=== PATIENT | female | born 1980 ===

== ENCOUNTER 2019-12-21 02:51 | Inpatient (IN) | payer OTHER, MEDICAID ==
[~2019-12-21] VITALS: Ht 157.5 cm; Wt 95.5 kg
[2019-12-21] MEDS ORDERED: SODIUM CITRATE/CITRIC ACID 30 ML UDC PO PRN (03:30)
[2019-12-21] MEDS ORDERED: OXYTOCIN 30U/ 0.9% NaCL 500ML 500 ML IV ONE (03:30)
[2019-12-21] MEDS ORDERED: PENICILLIN GK 2,500,000 UNITS in DEXTROSE 5% 100 ML IVPB SCH (03:30)
[2019-12-21] MEDS ORDERED: LACTATED RINGERS 1,000 ML IV SCH (03:30)
[2019-12-21] MEDS ORDERED: TERBUTALINE 1 MG/ML, 1ML SQ PRN (03:30)
[2019-12-21] MEDS ORDERED: NEWBORN KIT ONE (03:30)
[2019-12-21] MEDS ORDERED: D5%-LACTATED RINGERS 1,000 ML IV SCH (03:30)
[2019-12-21] MEDS ORDERED: ONDANSETRON 2MG/ML, 2ML IVPush PRN (03:30)
[2019-12-21] MEDS ORDERED: FENTANYL PF 100 MCG/2ML IV PRN (03:30)
[2019-12-21] MEDS ORDERED: PENICILLIN GK 5,000,000 UNITS in DEXTROSE 5% 100 ML IVPB ONE (03:30)
[2019-12-21] MEDS ORDERED: TERBUTALINE 1 MG/ML, 1ML IVPush PRN (03:30)
[2019-12-21] MEDS ORDERED: LACTATED RINGERS 1,000 ML IVBOLUS ONE (03:30)
[2019-12-21] MEDS ORDERED: FENTANYL PF 100 MCG/2ML IVPush PRN (03:30)
[2019-12-21] MEDS ORDERED: METOCLOPRAMIDE 5 MG/ML, 2ML IVPush PRN (03:30)
[2019-12-21] MEDS ORDERED: OXYTOCIN 30U/ 0.9% NaCL 500ML 500 ML ONE (03:30)
[2019-12-21] MEDS ORDERED: MISOPROSTOL 200 MCG TABLET ONE (03:45)
[2019-12-21 03:50] LABS: BASOPHILS % (AUTO) 1 % (0-1); EOSINOPHILS % (AUTO) 1 % (1-7); LYMPHOCYTES % (AUTO) 25 % (22-44); MEAN CORPUSCULAR HEMOGLOBIN 29.4 pg (27.0-34.8); MEAN CORPUSCULAR HGB CONC 32.6 g/dL (32.4-35.8); MEAN PLATELET VOLUME 9.1 fL (7.4-10.4); MONOCYTES % (AUTO) 7 % (2-9); NEUTROPHILS % (AUTO) 66 % (42-75); PLATELET COUNT 153 x10^3/uL (130-400); RED BLOOD COUNT 4.43 x10^6/uL (3.82-5.3)
[2019-12-21 03:52] LABS: MD NO
[2019-12-21] MEDS ORDERED: MISOPROSTOL 200 MCG TABLET PR PRN (04:00)
[2019-12-21] MEDS ORDERED: SIMETHICONE 80 MG CHEW TAB PO PRN (04:00)
[2019-12-21] MEDS ORDERED: METHYLERGONOVINE 0.2 MG/ML IM PRN (04:00)
[2019-12-21] MEDS ORDERED: HYDROcodone/APAP 5/325 TABLET PO PRN ×2 (04:00)
[2019-12-21] MEDS ORDERED: ACETAMINOPHEN 325 MG TABLET PO PRN (04:00)
[2019-12-21] MEDS ORDERED: CARBOPROST TROMETHAMINE 250 MCG/ML, 1ML IM PRN (04:00)
[2019-12-21] MEDS ORDERED: ONDANSETRON 2MG/ML, 2ML IV PRN (04:00)
[2019-12-21] MEDS ORDERED: IBUPROFEN 600 MG TABLET ONE (04:20)
[2019-12-21] MEDS: IBUPROFEN 600 MG TABLET PO PRN ×3 (04:23→17:52)
[2019-12-21] MEDS: OXYTOCIN 30U/ 0.9% NaCL 500ML 500 ML IV SCH ×2 (04:24→14:00)
[2019-12-21] MEDS: INSULIN REGULAR 100 UNITS/ML, 3ML VIAL SQ-INSULIN SCH ×4 (05:16→22:30)
[2019-12-21 05:45] VITALS: BP 126/75
[2019-12-21 06:16] LABS: MICROSCOPIC INDICATED
[2019-12-21 06:30] LABS: AMPHETAMINE SCREEN, URINE Negative (Negative); BARBITURATE SCREEN, URINE Negative (Negative); BENZODIAZEPINE SCREEN, URINE Negative (Negative); CANNABINOID SCREEN, URINE Negative (Negative); COCAINE SCREEN, URINE Negative (Negative); METHADONE SCREEN, URINE Negative (Negative); OPIATE SCREEN, URINE Negative (Negative)
[2019-12-21] MEDS ORDERED: INSULIN REGULAR 100 UNITS/ML, 3ML VIAL SQ-INSULIN SCH (07:00)
[2019-12-21 08:30] VITALS: BP 124/76
[2019-12-21] MEDS: DOCUSATE 100 MG CAPSULE PO PRN (09:58)
[2019-12-21] MEDS: PRENATAL VIT/IRON/FA 1 EACH TABLET PO SCH (09:58)
[2019-12-21 12:14] LABS: BASOPHILS % (AUTO) 1 % (0-1); EOSINOPHILS % (AUTO) 1 % (1-7); LYMPHOCYTES % (AUTO) 17 % (22-44); MD NO; MEAN CORPUSCULAR HEMOGLOBIN 29.3 pg (27.0-34.8); MEAN PLATELET VOLUME 9.1 fL (7.4-10.4); MONOCYTES % (AUTO) 6 % (2-9); NEUTROPHILS % (AUTO) 75 % (42-75); PLATELET COUNT 161 x10^3/uL (130-400); RED BLOOD COUNT 4.52 x10^6/uL (3.82-5.3); RED CELL DISTRIBUTION WIDTH 13.8 % (9.6-15.2)
[2019-12-21 12:30] VITALS: BP 136/81
[2019-12-21 23:14] VITALS: BP 119/77
[2019-12-22] MEDS: INSULIN REGULAR 100 UNITS/ML, 3ML VIAL SQ-INSULIN SCH ×4 (06:46→21:07)
[2019-12-22] MEDS: IBUPROFEN 600 MG TABLET PO PRN ×3 (07:50→21:00)
[2019-12-22] MEDS: DOCUSATE 100 MG CAPSULE PO PRN ×2 (07:50→21:00)
[2019-12-22] MEDS: PRENATAL VIT/IRON/FA 1 EACH TABLET PO SCH (07:50)
[2019-12-22 07:54] VITALS: BP 119/79
[2019-12-22] MEDS: OXYTOCIN 30U/ 0.9% NaCL 500ML 500 ML IV SCH ×3 (10:34→20:00)
[2019-12-22 19:30] VITALS: BP 124/80
[2019-12-22] MEDS ORDERED: DIPH,PERTUSS(ACELL),TET VAC/PF NC IM-VACC ONE (20:30)
[2019-12-23] MEDS: IBUPROFEN 600 MG TABLET PO PRN ×3 (04:33→21:04)
[2019-12-23] MEDS: OXYTOCIN 30U/ 0.9% NaCL 500ML 500 ML IV SCH ×2 (06:00→16:59)
[2019-12-23] MEDS: PRENATAL VIT/IRON/FA 1 EACH TABLET PO SCH (07:31)
[2019-12-23] MEDS: DOCUSATE 100 MG CAPSULE PO PRN ×2 (07:31→21:04)
[2019-12-23] MEDS: INSULIN REGULAR 100 UNITS/ML, 3ML VIAL SQ-INSULIN SCH ×4 (07:32→21:03)
[2019-12-23 07:38] VITALS: BP 129/85
[2019-12-23] MEDS: metFORMIN 850 MG TABLET PO SCH ×2 (10:36→17:02)
[2019-12-23] MEDS ORDERED: metFORMIN 850 MG TABLET PO SCH (17:00)
[2019-12-23 20:00] VITALS: BP 138/84
[2019-12-23] MEDS ORDERED: FLU VACC QS2020-21(6MOS UP)/PF 60MCG/0.5 ML SYR IM-VACC ONE (20:00)
[2019-12-24] MEDS: OXYTOCIN 30U/ 0.9% NaCL 500ML 500 ML IV SCH (02:00)
[2019-12-24] MEDS: IBUPROFEN 600 MG TABLET PO PRN ×2 (04:38→11:32)
[2019-12-24 06:00] LABS: BASOPHILS % (AUTO) 1 % (0-1); EOSINOPHILS % (AUTO) 3 % (1-7); LYMPHOCYTES % (AUTO) 25 % (22-44); MEAN CORPUSCULAR HEMOGLOBIN 29.4 pg (27.0-34.8); MEAN CORPUSCULAR HGB CONC 32.3 g/dL (32.4-35.8); MEAN PLATELET VOLUME 8.8 fL (7.4-10.4); MONOCYTES % (AUTO) 7 % (2-9); NEUTROPHILS % (AUTO) 64 % (42-75); PLATELET COUNT 170 x10^3/uL (130-400); RED BLOOD COUNT 4.45 x10^6/uL (3.82-5.3)
[2019-12-24 06:11] LABS: ANION GAP 7 mmol/L (5-15); CALCIUM 8.5 mg/dL (8.5-10.1); CHLORIDE 107 mmol/L (98-107)
[2019-12-24 06:14] LABS: MD NO
[2019-12-24 06:15] LABS: CHOL/HDL RATIO 3.3; CHOLESTEROL, TOTAL 163 mg/dL (140-239); CREATININE 0.58 mg/dL (0.55-1.02); HDL CHOL % 30 % (28-40); HDL CHOLESTEROL (DIRECT) 49 mg/dL (40-60); LDL CHOLESTEROL,CALCULATED 69 mg/dL (54-169); LDL/HDL RATIO 1.4 (0.5-3.0); TRIGLYCERIDES 225 mg/dL (50-200); VLDL CHOLESTEROL 45 mg/dL (0-25)
[2019-12-24] MEDS: INSULIN REGULAR 100 UNITS/ML, 3ML VIAL SQ-INSULIN SCH ×2 (07:00→11:00)
[2019-12-24 07:45] VITALS: BP 143/83
[2019-12-24] MEDS: metFORMIN 850 MG TABLET PO SCH (08:33)
[2019-12-24] MEDS: PRENATAL VIT/IRON/FA 1 EACH TABLET PO SCH (08:33)
[2019-12-24] MEDS: DOCUSATE 100 MG CAPSULE PO PRN (08:33)
[2019-12-24] MEDS ORDERED: METF850T10 PO (10:09)
[2019-12-24] MEDS ORDERED: OXYC-302 PO (10:09)
[2019-12-24] MEDS ORDERED: IBUP-1222 PO (10:09)
[2019-12-24] MEDS ORDERED: SENN-52 PO (10:10)
== END 2019-12-24 14:10 | disposition home or self-care (01) | DRG 807 ==
LOC: LDOP 02:51 → LDIP 03:21 → 2NE 05:35 → 2NW 05:40
PROVIDERS: ADMIT Obstetrics & Gynecology; ATTEND Obstetrics & Gynecology
PROC: 10E0XZZ Delivery of Products of Conception, External Approach (ICD-10-PCS; principal; 2019-12-21)
PROC: 10907ZC Drainage of Amniotic Fluid, Therapeutic from Products of Conception, Via Natural or Artificial Opening (ICD-10-PCS; 2019-12-21)
DX: O60.14X0 Preterm labor third trimester with preterm delivery third trimester, not applicable or unspecified (principal); Z37.0 Single live birth; O99.214 Obesity complicating childbirth; O16.4 Unspecified maternal hypertension, complicating childbirth; O99.284 Endocrine, nutritional and metabolic diseases complicating childbirth; O24.429 Gestational diabetes mellitus in childbirth, unspecified control; E66.9 Obesity, unspecified; E11.65 Type 2 diabetes mellitus with hyperglycemia; E78.1 Pure hyperglyceridemia; Z20.828 Contact with and (suspected) exposure to other viral communicable diseases; Z82.3 Family history of stroke; Z83.3 Family history of diabetes mellitus; Z3A.29 29 weeks gestation of pregnancy; Z91.19 Patient's noncompliance with other medical treatment and regimen; Z64.1 Problems related to multiparity
CPT/HCPCS: 36415; 80048; 80061; 80307; 81001; 82962; 83036; 85025; 86592; 86762; 86850; 86900; 86923; 87086; 87340; 87635; 87806; 88307; 90686; 90715; G0378; J1815; G0475; J2590; J7120